=== PATIENT | male | born 1960 | race African-American/Black ===

== ENCOUNTER 2021-03-07 15:12 | Observation (INO) | payer OTHER ==
[2021-03-07 18:10] LABS: #Neutrophils 6.8 10x3/uL (1.5-8.4); %Basophils 0.4 % (0.0-2.0); %Eosinophils 0.4 % (0.0-6.0); %Lymphocytes 25.3 % (18.0-47.0); %Monocytes 9.7 % (0.0-10.0); %Neutrophils 63.9 % (40.0-75.0); Hemoglobin 11.3 g/dL (13.5-17.5); Mean Corpuscular HGB CONC 31.8 g/dL (32.0-36.0); Mean Corpuscular Volume 88.1 fl (81.2-95.1); Mean Platelet Volume 10.7 fl (7.4-10.4); Platelet Count 245 10x3/uL (150-450); RBC Distribution Width 13.1 % (11.5-14.5); Red Blood Cell (RBC) Count 4.03 10x6/uL (4.32-5.72); White Blood Cell (WBC) Count 10.6 10x3/uL (3.5-10.5)
[2021-03-07 18:40] LABS: ALT (SGPT) 8 U/L (8-55); AST (SGOT) 11 U/L (5-34); Albumin 3.3 g/dL (3.4-4.8); Alkaline Phosphatase 101 U/L (40-110); Anion Gap 11 mmol/L (10-20); BUN (Urea Nitrogen) 10 mg/dL (8.4-25.7); Bilirubin, Total 0.4 mg/dL (0.2-1.2); Calc. Creatinine Clearance 0 mL/min (70-130); Calcium 8.8 mg/dL (7.8-10.44); Carbon Dioxide 26 mmol/L (23-31); Chloride 104 mmol/L (98-107); Globulin 5.8 g/dL (2.4-3.5); Glucose 123 mg/dL (80-115); Potassium 3.6 mmol/L (3.5-5.1); Protein, Total 9.1 g/dL (5.8-8.1); Sodium 137 mmol/L (136-145)
[2021-03-07] MEDS ORDERED: Morphine 4 MG/ML VIAL ONE (19:17)
[2021-03-07] MEDS ORDERED: Labetalol HCl 100 MG/20 ML VIAL ONE (21:57)
[2021-03-07] MEDS ORDERED: HYDROcodone/Acetaminophen 5/325 mg Tablet PO PRN (22:08)
[2021-03-07] MEDS ORDERED: Labetalol HCl 100 MG/20 ML VIAL SLOW IVP PRN (22:12)
[2021-03-07 22:21] LABS: Bilirubin Neg (Negative); Blood, Urine 50 (Negative); Clarity Clear (Clear); Glucose, Urine (Dipstick) 50 mg/dL (Negative); Ketone, Urine 5 mg/dL (Negative); Leukocyte Negative (Negative); Nitrite Negative (Negative); Protein, Urine (Dipstick) 100 mg/dl (Neg-Trace)
[2021-03-07] MEDS ORDERED: Dextrose 5% in Water 1,000 ML IV PRN (22:25)
[2021-03-07] MEDS ORDERED: Dextrose 50% Abboject 50 ML SYRINGE SLOW IVP PRN (22:25)
[2021-03-07 22:33] LABS: Squamous Epithelial 0-3 HPF (0-3); WBC/HPF 0-3 HPF (0-3)
[2021-03-07 22:34] LABS: Bacteria/HPF Rare-Few HPF (None Seen); Mucous/LPF Rare LPF (<2+); RBC/HPF 0-3 HPF (0-3)
[2021-03-07] MEDS ORDERED: Amlodipine 10 MG TAB PO SCH (23:15)
[2021-03-07] MEDS ORDERED: Carvedilol 6.25 MG TAB PO SCH (23:15)
[2021-03-07 23:16] LABS: Troponin I Less than 0.010 ng/mL (< 0.028)
[2021-03-08 01:43] VITALS: BMI 29.5
[2021-03-08] MEDS ORDERED: Prevnar 13-Val Conj/PF 0.5 ML SYRINGE IM ONE (02:00)
[2021-03-08 04:28] LABS: #Monocytes 0.9 10x3/uL (0.0-1.1); #Neutrophils 6.1 10x3/uL (1.5-8.4); %Basophils 0.2 % (0.0-2.0); %Eosinophils 0.3 % (0.0-6.0); %Monocytes 9.6 % (0.0-10.0); %Neutrophils 69.3 % (40.0-75.0); Hemoglobin 9.9 g/dL (13.5-17.5); Mean Corpuscular HGB CONC 32.1 g/dL (32.0-36.0); Mean Corpuscular Hemoglobin 28.1 pg (27.0-33.0); Mean Corpuscular Volume 87.5 fl (81.2-95.1); Mean Platelet Volume 10.3 fl (7.4-10.4); Platelet Count 257 10x3/uL (150-450); RBC Distribution Width 12.8 % (11.5-14.5); Red Blood Cell (RBC) Count 3.52 10x6/uL (4.32-5.72); White Blood Cell (WBC) Count 8.8 10x3/uL (3.5-10.5)
[2021-03-08 04:42] LABS: Anion Gap 12 mmol/L (10-20); BUN (Urea Nitrogen) 9 mg/dL (8.4-25.7); Calc. Creatinine Clearance 131 mL/min (70-130); Calcium 8.8 mg/dL (7.8-10.44); Carbon Dioxide 24 mmol/L (23-31); Chloride 104 mmol/L (98-107); Glucose 180 mg/dL (80-115); Potassium 3.5 mmol/L (3.5-5.1); Sodium 136 mmol/L (136-145)
[2021-03-08] MEDS ORDERED: Carvedilol 6.25 MG TAB PO SCH (08:00)
[2021-03-08] MEDS ORDERED: NPH, Human Insulin Isophane 300 UNIT/3 ML VIAL SC SCH ×2 (08:00→17:00)
[2021-03-08] MEDS: Baclofen 10 MG TAB PO SCH ×2 (08:43→15:20)
[2021-03-08] MEDS: Carvedilol 6.25 MG TAB PO SCH ×2 (08:44→17:20)
[2021-03-08] MEDS ORDERED: DULoxetine 30 MG CAP PO SCH (09:00)
[2021-03-08] MEDS ORDERED: Spironolactone 25 MG TAB PO SCH (09:00)
[2021-03-08] MEDS ORDERED: Amlodipine 10 MG TAB PO SCH (09:00)
[2021-03-08] MEDS ORDERED: ATAZANAVIR SULFATE 300 MG PO SCH (09:00)
[2021-03-08] MEDS ORDERED: Enoxaparin Sodium 40 MG/0.4 ML SYRINGE SC SCH (09:00)
[2021-03-08] MEDS ORDERED: Lisinopril 20 MG TAB PO SCH (09:00)
[2021-03-08] MEDS ORDERED: Aspirin 81 mg Enteric Coated Tablet PO SCH (09:00)
[2021-03-08] MEDS: HumaLOG 300 UNITS/3 ML VIAL SC PRN ×2 (12:31→17:22)
[2021-03-08 17:17] VITALS: TEMP 97.6
[2021-03-08 17:21] LABS: SARS-CoV-2 PCR by NAA Not Detected (NotDetected)
[2021-03-08 17:23] VITALS: BP 158/92
[2021-03-08] MEDS ORDERED: Pravastatin Sodium 20 MG TAB PO SCH (21:00)
== END 2021-03-08 18:50 | disposition home or self-care (01) ==
LOC: EEVIPCON 15:12 → CSHERS 15:12 → CSHTELE 15:13 → INTOOBSV 15:13
PROVIDERS: ADMIT Family Medicine; ATTEND Internal Medicine
DX: R00.0 Tachycardia, unspecified (principal); I10 Essential (primary) hypertension; E11.9 Type 2 diabetes mellitus without complications; M48.9 Spondylopathy, unspecified; I25.10 Atherosclerotic heart disease of native coronary artery without angina pectoris; K74.60 Unspecified cirrhosis of liver; Z21 Asymptomatic human immunodeficiency virus [HIV] infection status; E53.8 Deficiency of other specified B group vitamins; Z79.899 Other long term (current) drug therapy; Z79.4 Long term (current) use of insulin; Z79.82 Long term (current) use of aspirin; S09.90XA Unspecified injury of head, initial encounter; W06.XXXA Fall from bed, initial encounter; Z20.822 Contact with and (suspected) exposure to COVID-19
CPT/HCPCS: 36415; 36416; 70450; 71045; 71260; 72125; 72170; 74177; 80048; 80053; 81003; 81015; 82550; 83605; 83735; 84443; 84484; 85025; 93005; 93010; 96372; 96374; 96375; G0378; J1650; J1815; J2270; U0003; U0005

== ENCOUNTER 2021-05-15 21:47 | Emergency (ER) | payer OTHER ==
[2021-05-15 22:48] LABS: #Monocytes 0.6 10x3/uL (0.0-1.1); #Neutrophils 8.1 10x3/uL (1.5-8.4); %Basophils 0.2 % (0.0-2.0); %Eosinophils 0.2 % (0.0-6.0); %Monocytes 6.2 % (0.0-10.0); Hemoglobin 9.5 g/dL (13.5-17.5); Mean Corpuscular HGB CONC 31.7 g/dL (32.0-36.0); Mean Corpuscular Hemoglobin 27.6 pg (27.0-33.0); Mean Corpuscular Volume 87.2 fl (81.2-95.1); Mean Platelet Volume 9.7 fl (7.4-10.4); Platelet Count 275 10x3/uL (150-450); RBC Distribution Width 14.5 % (11.5-14.5); Red Blood Cell (RBC) Count 3.44 10x6/uL (4.32-5.72); White Blood Cell (WBC) Count 10.3 10x3/uL (3.5-10.5)
[2021-05-15 22:56] LABS: ALT (SGPT) 7 U/L (8-55); AST (SGOT) 15 U/L (5-34); Albumin 3.1 g/dL (3.4-4.8); Alkaline Phosphatase 87 U/L (40-110); Anion Gap 11 mmol/L (10-20); BUN (Urea Nitrogen) 12 mg/dL (8.4-25.7); Bilirubin, Total 0.4 mg/dL (0.2-1.2); Calc. Creatinine Clearance 0 mL/min (70-130); Calcium 8.1 mg/dL (7.8-10.44); Carbon Dioxide 24 mmol/L (23-31); Chloride 103 mmol/L (98-107); Globulin 4.4 g/dL (2.4-3.5); Glucose 214 mg/dL (80-115); Potassium 3.6 mmol/L (3.5-5.1); Protein, Total 7.5 g/dL (5.8-8.1); Sodium 134 mmol/L (136-145)
== END 2021-05-16 01:32 ==
LOC: EEVIPCON 21:47 → CSHERS 21:47
DX: R55 Syncope and collapse (principal); S09.90XA Unspecified injury of head, initial encounter; S49.92XA Unspecified injury of left shoulder and upper arm, initial encounter; D64.9 Anemia, unspecified; I10 Essential (primary) hypertension; I25.10 Atherosclerotic heart disease of native coronary artery without angina pectoris; E11.9 Type 2 diabetes mellitus without complications; Z79.4 Long term (current) use of insulin; Z21 Asymptomatic human immunodeficiency virus [HIV] infection status; Z79.82 Long term (current) use of aspirin; Z79.899 Other long term (current) drug therapy; W19.XXXA Unspecified fall, initial encounter; W22.8XXA Striking against or struck by other objects, initial encounter
CPT/HCPCS: 70450; 71045; 80053; 83605; 84484; 85025; 93005